=== PATIENT | female | born 1975 | race Caucasian/White ===

== ENCOUNTER 2017-01-11 00:59 | Emergency (ER) | payer OTHER ==
[2017-01-11 02:21] LABS: BASOPHIL 0.2 % (0-2); EOSINOPHIL 0.8 % (0-5); HCT 36.1 % (37.0-47.0); HGB 12.2 g/dl (12.5-16.0); LYMPHOCYTE 20.5 % (15-48); MCH 30.6 pg (25.0-31.0); MCHC 33.8 g/dL (32.0-36.0); MCV 90.5 fL (78.0-100.0); MONOCYTE 8.7 % (0-12); MPV 10.2 fL (6.0-9.5); NEUTROPHIL 69.8 % (41-80); PLT 327 K/uL (150-400); RBC 3.99 M/uL (4.20-5.40); RDW 12.7 % (11.5-14.0)
[2017-01-11 02:37] LABS: ALBUMIN 3.7 g/dL (3.5-5.0); BILIRUBIN - TOTAL 0.3 mg/dL (0.1-1.0); CREATININE 0.6 mg/dL (0.5-1.0); POTASSIUM 3.4 mmol/L (3.5-5.1); TOTAL PROTEIN 6.7 g/dL (6.4-8.3)
== END 2017-01-11 03:58 | disposition home or self-care (01) ==
LOC: FER 00:59
PROVIDERS: Emergency Medicine Emergency Medical Services
DX: R07.89 Other chest pain (principal); F41.9 Anxiety disorder, unspecified; F17.210 Nicotine dependence, cigarettes, uncomplicated; Z91.012 Allergy to eggs
CPT/HCPCS: 36415; 71010; 80053; 84484; 85025; 93005; J1100; J1170; J1885; J2405; J2800

== ENCOUNTER 2017-02-23 22:46 | Emergency (ER) | payer OTHER ==
[2017-02-23 23:45] LABS: BILIRUBIN NEGATIVE (NEGATIVE); BLOOD NEGATIVE Ery/uL (NEGATIVE); CLARITY CLEAR (CLEAR); COLOR YELLOW (YELLOW); GLUCOSE (U) NORMAL (NORMAL); KETONE (U) NEGATIVE (NEGATIVE); LEUKOCYTES NEGATIVE Leu/uL (NEGATIVE); NITRITE POSITIVE (NEGATIVE); PROTEIN NEGATIVE (NEGATIVE); SPECIFIC GRAVITY <=1.005 (1.001-1.030); UROBILINOGEN 0.2 mg/dL (0.2-1.0)
[2017-02-23 23:48] LABS: BASOPHIL 0.3 % (0-2); EOSINOPHIL 0.5 % (0-5); HCT 38.7 % (37.0-47.0); HGB 13.3 g/dl (12.5-16.0); LYMPHOCYTE 11.6 % (15-48); MCH 31.3 pg (25.0-31.0); MCHC 34.4 g/dL (32.0-36.0); MCV 91.1 fL (78.0-100.0); MONOCYTE 5.2 % (0-12); MPV 9.9 fL (6.0-9.5); NEUTROPHIL 82.4 % (41-80); PLT 295 K/uL (150-400); RBC 4.25 M/uL (4.20-5.40); RDW 13.7 % (11.5-14.0); WBC 10.2 K/uL (4.0-10.5)
[2017-02-23 23:52] LABS: BACTERIA 3+; URINARY WBC RARE
[2017-02-24 00:08] LABS: CREATININE 0.7 mg/dL (0.5-1.0); POTASSIUM 3.8 mmol/L (3.5-5.1)
== END 2017-02-24 00:56 | disposition home or self-care (01) ==
LOC: FER 22:46
PROVIDERS: Emergency Medicine
DX: T67.5XXA Heat exhaustion, unspecified, initial encounter (principal); N39.0 Urinary tract infection, site not specified; F17.210 Nicotine dependence, cigarettes, uncomplicated; X30.XXXA Exposure to excessive natural heat, initial encounter
CPT/HCPCS: 36415; 80048; 81001; 82550; 83874; 85025; 87076; 87088; 87186; 99284

== ENCOUNTER 2017-03-08 23:49 | Emergency (ER) | payer OTHER ==
[2017-03-09 00:14] LABS: BASOPHIL 0.6 % (0-2); HCT 37.1 % (37.0-47.0); HGB 12.6 g/dl (12.5-16.0); LYMPHOCYTE 37.7 % (15-48); MCH 31.4 pg (25.0-31.0); MCV 92.5 fL (78.0-100.0); MONOCYTE 10.2 % (0-12); MPV 10.2 fL (6.0-9.5); NEUTROPHIL 49.5 % (41-80); PLT 290 K/uL (150-400); RBC 4.01 M/uL (4.20-5.40); RDW 13.8 % (11.5-14.0); WBC 8.5 K/uL (4.0-10.5)
[2017-03-09 00:35] LABS: ALBUMIN 3.8 g/dL (3.5-5.0); BILIRUBIN - TOTAL 0.5 mg/dL (0.1-1.0); CREATININE 0.9 mg/dL (0.5-1.0); GLOBULIN (CALCULATION) 2.2 g/dL (2.2-4.2); MAGNESIUM 1.9 mg/dL (1.40-2.10); POTASSIUM 3.3 mmol/L (3.5-5.1)
[2017-03-09 01:47] LABS: BILIRUBIN NEGATIVE (NEGATIVE); BLOOD TRACE-INTACT Ery/uL (NEGATIVE); CLARITY CLEAR (CLEAR); COLOR YELLOW (YELLOW); GLUCOSE (U) NORMAL (NORMAL); KETONE (U) NEGATIVE (NEGATIVE); LEUKOCYTES NEGATIVE Leu/uL (NEGATIVE); NITRITE NEGATIVE (NEGATIVE); PROTEIN NEGATIVE (NEGATIVE); SPECIFIC GRAVITY 1.025 (1.001-1.030); UROBILINOGEN 0.2 mg/dL (0.2-1.0); pH 5.5 (5.0-9.0)
[2017-03-09 01:54] LABS: AMORPHOUS URATES CRYSTALS MODERATE; MUCOUS TRACE
[2017-03-09 02:00] LABS: AMPHETAMINES NEGATIVE (NEGATIVE); BARBITURATES NEGATIVE (NEGATIVE); BENZODIAZEPINES NEGATIVE (NEGATIVE); COCAINE NEGATIVE (NEGATIVE); MARIJUANA (THC) POSITIVE (NEGATIVE); METHADONE NEGATIVE (NEGATIVE); TRICYCLIC ANTIDEPRESSANT NEGATIVE (NEGATIVE)
== END 2017-03-09 02:35 | disposition home or self-care (01) ==
LOC: FER 23:49
PROVIDERS: Emergency Medicine
DX: G40.909 Epilepsy, unspecified, not intractable, without status epilepticus (principal); F17.210 Nicotine dependence, cigarettes, uncomplicated; Z91.012 Allergy to eggs; Z79.899 Other long term (current) drug therapy
CPT/HCPCS: 36415; 71010; 80053; 80305; 81001; 83735; 85025; 93005

== ENCOUNTER 2017-03-24 02:04 | Emergency (ER) | payer OTHER ==
[2017-03-24 02:35] LABS: BASOPHIL 0.4 % (0-2); EOSINOPHIL 1.6 % (0-5); HCT 37.6 % (37.0-47.0); HGB 12.9 g/dl (12.5-16.0); LYMPHOCYTE 30.2 % (15-48); MCHC 34.3 g/dL (32.0-36.0); MCV 90.4 fL (78.0-100.0); MONOCYTE 8.1 % (0-12); MPV 9.8 fL (6.0-9.5); NEUTROPHIL 59.7 % (41-80); PLT 275 K/uL (150-400); RBC 4.16 M/uL (4.20-5.40); RDW 13.2 % (11.5-14.0); WBC 6.7 K/uL (4.0-10.5)
[2017-03-24 02:43] LABS: BILIRUBIN NEGATIVE (NEGATIVE); BLOOD NEGATIVE Ery/uL (NEGATIVE); CLARITY CLEAR (CLEAR); COLOR YELLOW (YELLOW); GLUCOSE (U) NORMAL (NORMAL); KETONE (U) NEGATIVE (NEGATIVE); LEUKOCYTES NEGATIVE Leu/uL (NEGATIVE); NITRITE POSITIVE (NEGATIVE); PROTEIN NEGATIVE (NEGATIVE); SPECIFIC GRAVITY 1.025 (1.001-1.030); UROBILINOGEN 0.2 mg/dL (0.2-1.0); pH 5.5 (5.0-9.0)
[2017-03-24 02:48] LABS: BACTERIA 3+; MUCOUS MODERATE; URINARY RBC RARE
[2017-03-24 02:53] LABS: BILIRUBIN - TOTAL 0.5 mg/dL (0.1-1.0); CREATININE 0.9 mg/dL (0.5-1.0); GLOBULIN (CALCULATION) 2.6 g/dL (2.2-4.2); MAGNESIUM 1.93 mg/dL (1.40-2.10); POTASSIUM 3.5 mmol/L (3.5-5.1); TOTAL PROTEIN 6.6 g/dL (6.4-8.3)
[2017-03-24 02:56] LABS: AMPHETAMINES NEGATIVE (NEGATIVE); BARBITURATES NEGATIVE (NEGATIVE); BENZODIAZEPINES NEGATIVE (NEGATIVE); COCAINE NEGATIVE (NEGATIVE); MARIJUANA (THC) POSITIVE (NEGATIVE); METHADONE NEGATIVE (NEGATIVE); TRICYCLIC ANTIDEPRESSANT NEGATIVE (NEGATIVE)
== END 2017-03-24 03:40 | disposition home or self-care (01) ==
LOC: FER 02:04
PROVIDERS: Emergency Medicine Emergency Medical Services
DX: G40.409 Other generalized epilepsy and epileptic syndromes, not intractable, without status epilepticus (principal); N39.0 Urinary tract infection, site not specified; F12.90 Cannabis use, unspecified, uncomplicated; F11.90 Opioid use, unspecified, uncomplicated; F17.210 Nicotine dependence, cigarettes, uncomplicated
CPT/HCPCS: 36415; 80053; 80185; 80305; 81001; 83735; 85025; 87076; 87077; 87088; 87186; 93005